=== PATIENT | male | born 1995 | race Caucasian/White ===

== ENCOUNTER 2016-05-17 15:41 | Emergency (ER) | payer OTHER ==
[~2016-05-17] VITALS: Ht 177.8 cm; Wt 83.2 kg
[~2016-05-17 15:41] MED LIST: HYDROCODON-ACE1 EAC7 PO; MOTRIN600 MG PO; TRAZODONE HCL50 MG PO; ZOFRAN4 MG PO
[2016-05-17 16:43] LABS: HEMATOCRIT 42.2 % (38.0-50.0); MCH 29.3 PG (29.0-34.0); MCV 81.3 FL (86-99); MEAN PLAT.VOLUME 10.3 uM^3 (9.0-12.4); PLATELET COUNT 171 K/uL (156-360); RBC DIS.WIDTH-CV 11.9 % (11.8-14.6); RBC DIS.WIDTH-SD 34.6 % (39-53); RED BLOOD COUNT 5.19 M/uL (4.00-5.50); WHITE BLOOD COUNT 5.4 K/uL (4.1-10.2)
[2016-05-17 16:52] LABS: CHLORIDE 105 mEq/L (99-109); POTASSIUM 4.3 mEq/L (3.7-5.4); SODIUM 141 mEq/L (136-147)
[2016-05-17 16:54] LABS: GLUCOSE 118 mg/dL (70-99)
[2016-05-17 16:55] LABS: ANION GAP 8 MEQ/L (2-14)
[2016-05-17 16:56] LABS: TOTAL BILIRUBIN 0.5 mg/dL (0.0-1.0)
[2016-05-17 16:57] LABS: ALKALINE PHOSPHATASE 61 IU/L (3-129)
[2016-05-17 16:58] LABS: GFR ESTIMATE (CALCULATED) > 59 mL/min/
[2016-05-17 17:01] LABS: LIPASE 15 U/L (1.0-51.0)
[2016-05-17 17:21] LABS: ADD MIUA? NO; BILIRUBIN NEGATIVE; BLOOD NEGATIVE; COLOR YELLOW ((YELLOW)); GLUCOSE (STRIP) NEGATIVE; KETONES 5; LEUKOCYTES NEGATIVE; NITRITE NEGATIVE; PROTEIN (STRIP) 30; SPECIFIC GRAVITY 1.032 (1.000-1.030); UROBILINOGEN 0.2 MG/DL (0.2-1.0)
[2016-05-17 17:24] LABS: UREA NITROGEN (BUN) 11 mg/dL (9-23)
[2016-05-17] MEDS ORDERED: PROMETHAZINE HC25 M1 PO (18:01)
[2016-05-17] MEDS ORDERED: BENTYL20 MG PO (18:01)
[2016-05-17] MEDS ORDERED: PHENERGAN25 MG PR (18:01)
[2016-05-17 18:07] LABS: BACTERIA NONE SEEN /HPF; EPITHELIAL CELLS RARE /HPF; MUCUS 3+ /LPF; RED BLOOD CELLS 0-5 /HPF (0-5); WHITE BLOOD CELLS 0-5 /HPF (0-5)
[2016-05-17 18:54] VITALS: BP 127/86
== END 2016-05-17 18:50 | disposition home or self-care (01) ==
LOC: EME 15:41
PROVIDERS: Physician Assistant
DX: R10.9 Unspecified abdominal pain (principal); R11.2 Nausea with vomiting, unspecified; E86.0 Dehydration; F17.200 Nicotine dependence, unspecified, uncomplicated
CPT/HCPCS: 74022; 80053; 81003; 83690; 85027; 99281; 99285; J0500

== ENCOUNTER 2016-11-14 03:25 | Emergency (ER) | payer OTHER ==
[~2016-11-14] VITALS: Ht 177.8 cm; Wt 84.5 kg
[~2016-11-14 03:25] MED LIST changes: +BENTYL20 MG PO; +PHENERGAN25 MG PR; +PROMETHAZINE HC25 M1 PO
[2016-11-14 04:50] LABS: ADD MIUA? NO; BILIRUBIN NEGATIVE; BLOOD NEGATIVE; COLOR STRAW ((YELLOW)); GLUCOSE (STRIP) NEGATIVE; KETONES NEGATIVE; LEUKOCYTES NEGATIVE; NITRITE NEGATIVE; PROTEIN (STRIP) NEGATIVE; SPECIFIC GRAVITY 1.004 (1.000-1.030); UCUL ADDED? NO; UROBILINOGEN 0.2 MG/DL (0.2-1.0)
[2016-11-14 05:02] LABS: BASOPHIL COUNT 0.1 K/uL (0-0.1); EOSINOPHIL COUNT 0.7 K/uL (0-0.3); HEMATOCRIT 40.6 % (38.0-50.0); IMMATURE GRANULOCYTE (%) 0.3 % (0.0-0.7); INSTRUMENT ABS NEUTROPHIL CT 3.6 K/uL; LYMPHOCYTE COUNT 1.9 K/uL (1.0-2.8); MCH 28.7 PG (29.0-34.0); MCHC 34.7 G/DL (30.0-36.0); MCV 82.7 FL (86-99); MEAN PLAT.VOLUME 9.4 uM^3 (9.0-12.4); MONOCYTE (%) 7.9 % (3-12); MONOCYTE COUNT 0.5 K/uL (0-0.8); NEUTROPHIL (%) 53.1 % (45-76); NEUTROPHIL COUNT 3.6 K/uL (1.8-6.4); PLATELET COUNT 189 K/uL (156-360); RBC DIS.WIDTH-CV 11.7 % (11.8-14.6); RBC DIS.WIDTH-SD 35.2 % (39-53); RED BLOOD COUNT 4.91 M/uL (4.00-5.50); WHITE BLOOD COUNT 6.8 K/uL (4.1-10.2)
[2016-11-14 05:09] LABS: D-DIMER ELISA < 150.00 ng/mLDDU (<230)
[2016-11-14 05:22] LABS: CHLORIDE 104 mEq/L (99-109); SODIUM 141 mEq/L (136-147); TROP-I INTERPRETATION NEGATIVE; TROPONIN-I < 0.01 ng/mL (0.0-0.30)
[2016-11-14 05:24] LABS: GLUCOSE 102 mg/dL (70-99)
[2016-11-14 05:25] LABS: ANION GAP 9 MEQ/L (2-14)
[2016-11-14 05:28] LABS: GFR ESTIMATE (CALCULATED) > 59 mL/min/; UREA NITROGEN (BUN) 8 mg/dL (9-23)
[2016-11-14 06:01] VITALS: BP 112/77
== END 2016-11-14 06:02 | disposition home or self-care (01) ==
LOC: EME 03:25
PROVIDERS: Emergency Medicine
DX: R07.89 Other chest pain (principal); F41.9 Anxiety disorder, unspecified; F10.99 Alcohol use, unspecified with unspecified alcohol-induced disorder; R35.0 Frequency of micturition; R68.83 Chills (without fever); R11.0 Nausea; F17.200 Nicotine dependence, unspecified, uncomplicated
CPT/HCPCS: 71020; 80048; 81003; 84484; 85025; 85379; 93005; 99281; 99284